=== PATIENT | female | born 1945 | race Two or more races ===

== ENCOUNTER → 2016-09-21 | Day surgery (SDC) | payer MEDICARE, OTHER ==
[2016-09-21] VITALS (9 sets, daily range): BP systolic 115–143; BP diastolic 51–68
[~2016-09-21] VITALS: Ht 157.5 cm; Wt 66.2 kg
[~2016-09-21] MED LIST: ASACOL HD800 MG ORAL; ASACOR; ASPIR 8181 MG ORAL; ATORVASTATIN CA10 MG ORAL; BENICAR HCT 401 EACH ORAL; BENICAR40 MG ORAL; LIALDA PO; LIVALO4 MG PO; LR 1000ml 1,000 ML IVLG SCH; LR 1000ml ONE; METOPROLOL TART25 MG ORAL; Propofol 10mg/ml 20ml IV ONE; VASCEPA1 GM PO; ZANTAC150 MG ORAL; [UNRECOGNIZED DRUG - OTHER] PO; metoprolol PO
--- NOTE | 2016-09-21 10:17 | Short Stay Surgery H&P ---
History of Present Illness History of Present Illness Chief Complaint Epigastric pains/dysphagia. HPI Laurie Villarreal is a 71 year old female who was admitted on for dysphagia and GERDs, Patient History Allergies: Coded Allergies: No Known Allergies (Unverified , 12/25/13) PAST MEDICAL HISTORY: (1) Hypertension (2) Hyperlipidemia Past Surgeries: Social History: Medication History Scheduled Aspirin* (Aspir 81*), 81 MG ORAL DAILY, (Reported) Atorvastatin Calcium* (Lipitor*), 10 MG ORAL BEDTIME, (Reported) Mesalamine (Asacol Hd), 800 MG ORAL THREE TIMES A DAY, (Reported) Metoprolol Tartrate* (Metoprolol Tartrate*), 25 MG ORAL EVERY 12 HOURS, ( Reported) Olmesartan/Hydrochlorothiazide 40-12.5MG (Benicar Hct 40-12.5 Mg Tablet), 1 TAB ORAL DAILY, (Reported) [Vacipa], PO BID, (Reported) Review of Systems Cardiovascular: Reports: no symptoms Respiratory: Reports: no symptoms Skeletal: Reports: no symptoms Gastrointestinal: Reports: gastro esophageal reflux disease Genitourinary: Reports: no symptoms Neurologic: Reports: no symptoms Endocrine: Reports: no symptoms Hematologic: Reports: no symptoms Physical Exam Skin: normal HENT: normal Heart: normal Lungs: normal Abdomen: abnormal Extremities: normal Genitourinary: normal Plan Plan of Care Upper Gi endoscopy and biopsy. Preop Interventions None. Summary of Findings See the results Final Diagnosis: Attestation Are the patient's medical conditions optimized for surgery? Attestation Response: yes CHRISTI THACKER Sep 21, 2016 10:17
--- NOTE | 2016-09-21 10:18 | Pre-Procedure Note/Attestation ---
Pre-Procedure Note/Attestation Complete Prior to Procedure Planned Procedure: left Procedure Narrative: The endoscopic exam of the upper GI tract. Indications for Procedure Pre-Operative Diagnosis: R/O Gastritis/esophagitis. Attestation I attest that I discussed the nature of the procedure; its benefits; risks and complications; and alternatives (and the risks and benefits of such alternatives ), prior to the procedure, with the patient (or the patient's legal resources representative). I attest that, if there was a reasonable possibility of needing a blood transfusion, the patient (or the patient's legal resources representative) was given the [facility] standardized written summary, pursuant to the [place] Blood Safety Act ([place] Health and Safety Code # 1645, as amended). I attest that I re-evaluated the patient just prior to the surgery and that there has been no change in the patient's H&P, except as documented below: KIRSTIE,SAID Sep 21, 2016 10:18
--- NOTE | 2016-09-21 10:45 | Anethesia Preoperative Eval ---
Anesthesia Pre-op PMH/ROS General Date of Evaluation: Sep 21, 2016 Time of Evaluation: 10:35 Anesthesiologist: marie ASA Score: ASA 3 Mallampati Score Class I : Soft palate, uvula, fauces, pillars visible Class II: Soft palate, uvula, fauces visible Class III: Soft palate, base of uvula visible Class IV: Only hard plate visible Mallampati Classification: Class II Surgeon: emeka Diagnosis: GERD Surgical Procedure: egd Anesthesia History: none Allergies: Coded Allergies: No Known Allergies (Unverified , 12/25/13) Past Medical History Cardiovascular: Reports: HTN Gastrointestinal/Genitourinary: Reports: other - ulcer hx Anesthesia Pre-op Phys. Exam Physician Exam Last Vital Signs Date Time Temp Pulse Resp B/P Pulse Ox O2 Delivery O2 Flow Rate FiO2 09/21/16 10:24 98.5 57 18 124/51 98 Room Air Airway Exam Mallampati Score: Class II Teeth: intact Anesthesia Pre-op A/P Risk Assessment & Plan Plan: propofol Status Change Before Surgery: Sean Read MD Sep 21, 2016 10:45
--- NOTE | 2016-09-21 10:46 | Endoscopy Procedure Note ---
Endoscopy Procedure Note Indication for Procedure: Abdominal/epigastric pains with dysphagia Procedures Performed: EGD - normal upper GI endoscopy, biopsy done per random from gastric body. Specimen: yes Pt Tolerated Procedure Well: Yes Estimated Blood Loss: none Anesthesiologist: Dr. Arriaza Anesthesia: moderate sedation Medication Given: see anesthesia record Implant(s) used?: No 50 yrs or older w/o bx or poly: Not Applicable 10yrs. F/U not recommended: Not Applicable If not recommended, why?: Med reason:<3 yrs.: CHRISTI THACKER Sep 21, 2016 10:46
--- NOTE | 2016-09-21 10:46 | Immediate Post-Op Evaluation ---
Immediate Post-Op Evalulation Immediate Post-Op Evalulation Date of Evaluation: Sep 21, 2016 Time of Evaluation: 11:05 IV Fluids: 200 Blood Pressure Systolic: 100 Blood Pressure Diastolic: 50 Pulse Rate: 63 Respiratory Rate: 23 O2 Sat by Pulse Oximetry: 98 Temperature (Fahrenheit): 97 Pain Score (1-10): 0 Nausea: No Vomiting: No Complications none Patient Status: awake, patent, none Hydration Status: adequate Sean Hilliard MD Sep 21, 2016 10:46
--- NOTE | 2016-09-21 10:47 | 48 Hour Post Anesthesia Eval ---
Post Anesthesia Evaluation Date of Evaluation: Sep 21, 2016 Airway: patent Nausea: No Vomiting: No Pain Intensity: 0 Hydration Status: adequate Cardiopulmonary Status: stable Mental Status/LOC: patient returned to baseline Follow-up Care/Observations: n/a Post-Anesthesia Complications: tolrated well Follow-up care needed: ready to discharge Sean Hilliard MD Sep 21, 2016 10:47
--- NOTE | 2016-09-21 10:47 | Discharge Instructions ---
Discharge Instructions Discharge Instructions Follow up with: visit the doctor after two weeks. For Congestive Heart Failure Reminder Report to your physician any weight gain of 5 pounds or more in one week. CHRISTI THACKER Sep 21, 2016 10:47
--- NOTE | 2016-09-21 17:48 | Operative Note - Dictated ---
DATE OF OPERATION: 09/21/2016 PROCEDURE: Esophagogastroduodenoscopy with biopsy. PREOPERATIVE DIAGNOSES: Dysphagia, abdominal pain and epigastric pain. POSTOPERATIVE DIAGNOSES: Completely normal upper gastrointestinal endoscopy. Biopsy was taken per random from gastric body. MEDICATIONS USED: Per Dr. Hilliard, anesthesiologist. INSTRUMENT: GIF Olympus upper gastrointestinal video endoscope. DESCRIPTION OF PROCEDURE: The patient after arriving in the endoscopy unit, was told about risks and benefits of the procedure, which she accepted and signed the informed consent. She was then put on the left lateral decubitus position. After adequate IV sedation, the scope was gently passed through the cricopharyngeal area, was lodged into the upper esophagus, and gradually advanced towards gastroesophageal junction. The entire length of the esophagus looked normal. No evidence of varices, inflammatory process, ulceration, etc. was found. There was no exudate. GE junction also looked normal without any evidence of hiatal hernia or Johnston's. At this time, the scope was advanced into the stomach. Gastric cavity was distended. Gastric fold came into view. The areas of the fundus and the body and the antrum were examined in dryer feeder fashion revealing normal gastric mucosa without any evidence of polyps, tumors, ulcers, bleeding site, gastritis etc. One random biopsy from gastric body was obtained. Subsequently, the scope was passed through normal looking pylorus. First and second portion of duodenum were found also to be completely normal. At this time, the scope was pulled out and the procedure was terminated. The patient tolerated the procedure well and left the endoscopy room in good condition. Said Nancy Cox DR: VIKTOR JOB#: [id number] CC:
== END | disposition home or self-care (01) ==
LOC: GAS 08:28
DX: R13.10 Dysphagia, unspecified (principal); K29.50 Unspecified chronic gastritis without bleeding; K21.9 Gastro-esophageal reflux disease without esophagitis; I10 Essential (primary) hypertension; E78.5 Hyperlipidemia, unspecified; Z87.19 Personal history of other diseases of the digestive system; Z79.82 Long term (current) use of aspirin
CPT/HCPCS: 43239; J2704; J7120; 94003; 94150

== ENCOUNTER 2018-06-13 08:46 | Day surgery (SDC) | payer MEDICARE, OTHER ==
[2018-06-13] VITALS (8 sets, daily range): BP systolic 123–147; BP diastolic 61–71
[~2018-06-13] VITALS: Ht 157.5 cm; Wt 82.6 kg
--- NOTE | 2018-06-13 07:14 | Anethesia Preoperative Eval ---
Anesthesia Pre-op PMH/ROS General Date of Evaluation: Jun 13, 2018 Time of Evaluation: 07:11 Anesthesiologist: damion ASA Score: ASA 3 Mallampati Score Class I : Soft palate, uvula, fauces, pillars visible Class II: Soft palate, uvula, fauces visible Class III: Soft palate, base of uvula visible Class IV: Only hard plate visible Mallampati Classification: Class II Surgeon: emeka Diagnosis: abdominal apin Surgical Procedure: colonoscopy Anesthesia History: none Social History: smoking - former smoker Family History: no anesthesia problems Allergies: Coded Allergies: No Known Allergies (Unverified , 12/25/13) Medications: see eMAR Patient NPO?: Yes Past Medical History Cardiovascular: Reports: HTN, other - hyperlipidemia Pulmonary: Reports: asthma Neurologic/Psychiatric: Reports: depression/anxiety HEENT: Reports: other - decreased visual acuity Musculoskeletal/Integumentary: Reports: OA PSxH Narrative: orif right hand Anesthesia Pre-op Phys. Exam Physician Exam Last Vital Signs Date Time Temp Pulse Resp B/P (MAP) Pulse Ox O2 Delivery O2 Flow Rate FiO2 06/13/18 11:03 97.0 53 18 135/68 98 Room Air Neurologic: CN 2-12 intact Cardiovascular: RRR Respiratory: CTA Gastrointestinal: S/NT/ND Airway Exam Mallampati Score: Class II MO: limited Neck: flexible TMD: 2fb ROM: limited Anesthesia Pre-op A/P Risk Assessment & Plan Assessment: asa3 Plan: mac Status Change Before Surgery: No Pre-Antibiotics Drug: Tricia Wagner MD Jun 13, 2018 07:14
[~2018-06-13 08:46] MED LIST changes: +Atropine Inj 1mg/10ml Syr IV PRN; +DiphenhydrAMINE 50mg/ml Inj IVP PRN; -LR 1000ml ONE; +Midazolam 2mg/2ml Inj IVP PRN; -Propofol 10mg/ml 20ml IV ONE; +fentaNYL 100 mcg/2 mL IV PRN
[2018-06-13] MEDS ORDERED: AMIODARONE HCL100 MG ORAL (10:42)
[2018-06-13] MEDS ORDERED: APRISO0.375 GM PO (10:43)
[2018-06-13] MEDS ORDERED: OMEPRAZOLE40 M1 ORAL (10:44)
[2018-06-13] MEDS ORDERED: ZYRTEC10 MG ORAL (10:45)
[2018-06-13] MEDS ORDERED: ELIQUIS2.5 MG PO (10:47)
--- NOTE | 2018-06-13 10:49 | Short Stay Surgery H&P ---
History of Present Illness History of Present Illness Chief Complaint History of colitis/abdominal pains/screening colon HPI Laurie Villarreal is a 72 year old female who was admitted on for Abdominal Pain /history of colitis/ screening colon follow up Patient History Allergies: Coded Allergies: No Known Allergies (Unverified , 12/25/13) PAST MEDICAL HISTORY: (1) Hypertension (2) Hyperlipidemia Medication History Scheduled Amiodarone Hcl (Amiodarone Hcl), 200 MG ORAL DAILY, (Reported) Aspirin* (Aspir 81*), 81 MG ORAL DAILY, (Reported) Atorvastatin Calcium* (Lipitor*), 10 MG ORAL BEDTIME, (Reported) Cetirizine Hcl* (Zyrtec*), 10 MG ORAL DAILY, (Reported) Icosapent Ethyl (Vascepa), 1 GM PO HS, (Reported) Mesalamine (Apriso), 0.375 GM PO DAILY, (Reported) Metoprolol Tartrate* (Metoprolol Tartrate*), 25 MG ORAL EVERY 12 HOURS, ( Reported) Olmesartan Medoxomil (Benicar), 40 MG ORAL DAILY, (Reported) Omeprazole (Omeprazole), 40 MG ORAL DAILY, (Reported) Pitavastatin Calcium (Livalo), 4 MG PO HS, (Reported) Ranitidine Hcl* (Zantac*), 150 MG ORAL DAILY, (Reported) [Lialda], 2 TAB PO BID, (Reported) [Vacipa], PO BID, (Reported) Discontinued Medications Mesalamine (Asacol Hd), 800 MG ORAL THREE TIMES A DAY, (Reported) Discontinued Reason: discontinued med Review of Systems Cardiovascular: Reports: no symptoms, hypertension Respiratory: Reports: no symptoms Skeletal: Reports: osteroarthritis Gastrointestinal: Reports: gastro esophageal reflux disease Genitourinary: Reports: no symptoms Neurologic: Reports: no symptoms Endocrine: Reports: no symptoms Hematologic: Reports: no symptoms Physical Exam Skin: normal HENT: normal Heart: normal Lungs: normal Abdomen: abnormal Extremities: normal Genitourinary: normal Plan Plan of Care Total colonoscopy with biopsy Preop Interventions None. Summary of Findings see the reports Attestation Are the patient's medical conditions optimized for surgery? Attestation Response: yes Anthony Cox MD Jun 13, 2018 10:49
--- NOTE | 2018-06-13 10:50 | Pre-Procedure Note/Attestation ---
Pre-Procedure Note/Attestation Complete Prior to Procedure Planned Procedure: left Procedure Narrative: Examination of colon via colonoscopy Indications for Procedure Pre-Operative Diagnosis: R/O colitis/CA/polyps Attestation I attest that I discussed the nature of the procedure; its benefits; risks and complications; and alternatives (and the risks and benefits of such alternatives ), prior to the procedure, with the patient (or the patient's legal career services representative). I attest that, if there was a reasonable possibility of needing a blood transfusion, the patient (or the patient's legal career services representative) was given the [facility] standardized written summary, pursuant to the [place] Blood Safety Act ([place] Health and Safety Code # 1645, as amended). I attest that I re-evaluated the patient just prior to the surgery and that there has been no change in the patient's H&P, except as documented below: Anthony Cox MD Jun 13, 2018 10:50
[2018-06-13] MEDS ORDERED: Propofol 200mg/20ml IV ONE ×3 (11:00)
[2018-06-13] MEDS ORDERED: LR 1000ml ONE (11:00)
[2018-06-13] MEDS ORDERED: Lidocaine 1% MPF 10mg/ml 5ml ONE (11:00)
[2018-06-13] MEDS ORDERED: Atropine Sulfate 0.4mg/ml inj ONE (11:00)
--- NOTE | 2018-06-13 11:38 | Endoscopy Procedure Note ---
Endoscopy Procedure Note General Indication for Procedure: Gastro-esopheal reflux/abdominal pains and history of colitis. Procedures Performed: EGD - Compkletely normal Upper GI. endoscopy. Biopsy obtained from gastric body., colonoscopy - Mild patchy left colitis with minimal internal hemorrhoids. Multiple biopsies obtained all parts of the colon. TI could not be entered. Specimen: yes Pt Tolerated Procedure Well: Yes Estimated Blood Loss: none Anesthesia Anesthesiologist: Dr. Rene. Anesthesia: moderate sedation Medications Medication Given: see anesthesia record Inserted Devices Implant(s) used?: No Quality Quality of Bowel Preparation: Poor Did scope reach the cecum?: No Was there any complications?: No GI Core Measures 50 yrs or older w/o bx or poly: Yes 10yrs. F/U not recommended: Yes <3yrs. since last colonoscopy: No Med reason:<3 yrs.: System Reason:<3 yrs.: Last colonoscopy >= to 3yrs: No Anthony Cox MD Jun 13, 2018 11:38
--- NOTE | 2018-06-13 11:39 | Discharge Instructions ---
Discharge Instructions Discharge Instructions Follow up with: visit the docotor in office after 2 weeks For Congestive Heart Failure Reminder Report to your physician any weight gain of 5 pounds or more in one week. Anthony Cox MD Jun 13, 2018 11:39
--- NOTE | 2018-06-13 12:23 | Immediate Post-Op Evaluation ---
Immediate Post-Op Evalulation Immediate Post-Op Evalulation Procedure: egd/colonoscopy/bx Date of Evaluation: Jun 13, 2018 Time of Evaluation: 12:02 IV Fluids: 500ml lr Blood Products: none Estimated Blood Loss: negligible Blood Pressure Systolic: 114 Blood Pressure Diastolic: 53 Pulse Rate: 62 Respiratory Rate: 18 O2 Sat by Pulse Oximetry: 97 Temperature (Fahrenheit): 97.0 Pain Score (1-10): 0 Nausea: No Vomiting: No Complications none Patient Status: awake, reacts, patent Hydration Status: adequate Drug: Tricia Wagner MD Jun 13, 2018 12:23
--- NOTE | 2018-06-13 12:25 | 48 Hour Post Anesthesia Eval ---
Post Anesthesia Evaluation Procedure: egd/colonoscopy/bx Date of Evaluation: Jun 13, 2018 Time of Evaluation: 12:04 Blood Pressure Systolic: 123 0: 67 Pulse Rate: 61 Respiratory Rate: 18 Temperature (Fahrenheit): 97.0 O2 Sat by Pulse Oximetry: 97 Airway: patent Nausea: No Vomiting: No Pain Intensity: 0 Hydration Status: adequate Cardiopulmonary Status: stable Mental Status/LOC: patient returned to baseline Post-Anesthesia Complications: none Follow-up care needed: N/A Tricia Thurman MD Jun 13, 2018 12:25
--- NOTE | 2018-06-13 20:15 | Operative Note - Dictated ---
DATE OF OPERATION: 06/13/2018 SURGEON: Anthony Cox M.D. PROCEDURE: Esophagogastroduodenoscopy with biopsy. PREOPERATIVE DIAGNOSIS: Gastroesophageal reflux and abdominal pain. POSTOPERATIVE DIAGNOSIS: Completely normal upper gastrointestinal endoscopy. Biopsy was taken per random from gastric body. MEDICATION USED: Per Dr. Rene, anesthesiologist. INSTRUMENT: GIF Olympus upper GI video endoscope. DESCRIPTION OF PROCEDURE: The patient after arriving in endoscopy unit, was told about risks and benefits of procedure, which she accepted and signed informed consent. At this time, she was put in the left lateral decubitus position. After adequate IV sedation, the scope was gently passed through the cricopharyngeal area, was lodged into the upper esophagus, and gradually advanced towards gastroesophageal junction. The entire length of esophagus looked normal and no evidence of pathology such as inflammatory process, ulceration, stricture, etc. were found. GE junction was also found to be completely normal. At this time, the scope was advanced into the stomach. Gastric cavity was distended. Gastric fold came into view, which looked completely normal. No evidence of gastritis, ulcers, tumors, polyps, etc. were found. Gradually, the areas of the fundus and the body and the antrum were examined and one random biopsy from gastric body was also obtained. At this point, the scope was passed through normal looking pylorus. First and second portion of duodenum were found to be also completely normal. Finally, the scope was pulled out. The procedure was terminated. The patient tolerated the procedure well. Anthony Cox M.D. DR: PEDRO LUIS JOB#: [id number] CC:
--- NOTE | 2018-06-13 21:45 | Operative Note - Dictated ---
DATE OF OPERATION: 06/13/2018 SURGEON: Anthony Cox M.D. PROCEDURE: Total colonoscopy with multiple biopsies. PREOPERATIVE DIAGNOSIS: History of colitis. POSTOPERATIVE DIAGNOSIS: Mild patchy left colitis with minimal internal hemorrhoid. Multiple biopsies were taken from different parts of the colon and terminal ileum could not be penetrated. MEDICATION USED: Per Dr. Rene, anesthesiologist. INSTRUMENT: GIF Olympus video colonoscope. DESCRIPTION OF PROCEDURE: The patient after arriving endoscopy unit was told about risks and benefits of the procedure which she accepted and signed informed consent. She was then put on the left lateral decubitus position. After adequate IV sedation, the scope was gently passed through the anal area, and examination of this area revealed evidence of minimal internal hemorrhoids, which was not friable and nonsignificant. At this time, the scope was passed to almost normal-looking rectum and introduced into the rectosigmoid area, gradually advanced towards the left splenic flexure into the left colon. There were all areas of patchy inflammatory process consistent with patchy colitis, but no bleeding or major ulceration was noted. Gradually, upon passage of the scope towards the splenic flexure, the same inflammatory process was noted in a scattered fashion. At this time, the scope was advanced into the transverse colon, which revealed completely normal findings with normal mucosa. The scope was gradually advanced towards the mid and from the proximal transverse colon guided into the hepatic flexure and finally into the right colon all the way to the base of the cecum. All these areas endoscopically looked completely normal, and there was no any evidence of inflammatory process, colitis, ulcers, etc. No strictures. No polyps. Multiple attempts were made to enter into the terminal ileum, which was not successful. The colon cleanup was poor and there was significant amount of liquidy stool along the colon, which made the examination difficult; however, there were no any particular pathology such as polyps. At this time, within 6 minutes, scope was gradually pulled out and multiple biopsies from different parts of the colon from the proximal ascending up to the rectal area was obtained, and the specimen was submitted to the pathology lab. At this point, the procedure was terminated. The patient tolerated the procedure well and left the endoscopy room in a good condition. Reyna Thomas.D. DR: SHABANA JOB#: [id number] CC:
== END 2018-06-13 13:10 | disposition home or self-care (01) ==
LOC: GAS 08:46
DX: R10.9 Unspecified abdominal pain (principal); K21.9 Gastro-esophageal reflux disease without esophagitis; Z86.010 Personal history of colon polyps; K64.8 Other hemorrhoids; I10 Essential (primary) hypertension; E78.5 Hyperlipidemia, unspecified; M19.90 Unspecified osteoarthritis, unspecified site; F32.9 Major depressive disorder, single episode, unspecified; F41.9 Anxiety disorder, unspecified; J45.909 Unspecified asthma, uncomplicated; Z87.891 Personal history of nicotine dependence; Z79.82 Long term (current) use of aspirin
CPT/HCPCS: 43239; 45380; J0461; J2704; 94003; 94150